=== PATIENT | female | born 1980 | race Caucasian/White ===

== ENCOUNTER 2016-11-01 09:05 | Emergency (ER) | payer BC, OTHER ==
[2016-11-01 09:24] VITALS: BP 138/92
[2016-11-01] MEDS ORDERED: NEOMY/BACITR/POLYMYXIN OINT PACKET. TP ONE (09:30)
[2016-11-01] MEDS ORDERED: HYDR-971 PO (09:36)
--- NOTE | 2016-11-01 09:36 | PHYS DOC ---
Past History Past Medical History: No Pertinent History Past Surgical History: Tubal ligation Alcohol Use: None Drug Use: None Adult General Chief Complaint Chief Complaint: ANKLE PROBLEM HPI HPI Patient is a 36-year-old female who presents ambulatory to the ED with a injury to her right lower leg. She was driven here by her son. The patient slipped getting out of the shower, her right leg went behind her and scraped on the metal shower door track. She denies other injury. She is able to bear weight. Last tetanus 2 years ago. Review of Systems Review of Systems Musculoskeletal: Denies injury other than right lower leg Integument: Scrape to the right lower leg Current Medications Current Medications Current Medications Medications (Trade) Dose Ordered Sig/Elena Start Time Stop Time Status Last Admin Dose Admin Acetaminophen/ Hydrocodone Bitart (Lortab 7.5/325) 1 tab 1X ONCE 11/01/16 09:50 11/01/16 09:51 Neomycin/ Polymyxin/ Bacitracin (Triple Antibiotic Ointment) 1 pkt 1X ONCE 11/01/16 09:30 11/01/16 09:31 UNV Allergies Allergies Allergies Coded Allergies Type Severity Reaction Last Updated Verified No Known Drug Allergies 11/01/16 No Physical Exam Physical Exam Constitutional: Well developed, well nourished, no acute distress, non-toxic appearance. Alert, mentating normally, ambulatory with a slight limp. HENT: Normocephalic, atraumatic, bilateral external ears normal, nose normal. [ ] Eyes: conjunctiva normal, no discharge. [] Neck: Normal range of motion, no stridor. [] Skin: Warm, dry, no erythema, no rash. [] Extremities: Right lower extremity: Knee without deformity, swelling, or tenderness. Proximal tib-fib nontender. On the distal anterior lower tib-fib, above the ankle, there is an approximately 6 x 8 cm area of contusion. There is a linear abrasion that is bleeding slightly down the middle of the contusion. There is tenderness of this area and also the ankle. Foot is without tenderness or deformity. Foot is warm with capillary refill less than 2 seconds. Neurologic: Alert and oriented X 3, normal motor function, normal sensory function, no focal deficits noted. [] Current Patient Data Vital Signs Vital Signs Date Time Temp Pulse Resp B/P (MAP) Pulse Ox O2 Delivery O2 Flow Rate FiO2 11/01/16 09:24 97.6 85 22 85 Room Air EKG EKG [] Radiology/Procedures Radiology/Procedures Three-view x-ray of the right ankle including the lower tib-fib read by me. No acute bony injury. [] Course & Med Decision Making Course & Med Decision Making Pertinent Labs and Imaging studies reviewed. (See chart for details) 36-year-old female presents with an injury to the right lower leg. X-rays are negative. The contusion/abrasion was cleaned and dressed. See instructions for plan. [] Dragon Disclaimer Dragon Disclaimer This chart was dictated in whole or in part using Voice Recognition software in a busy, high-work load, and often noisy Emergency Department environment. It may contain unintended and wholly unrecognized errors or omissions. Departure Departure: Impression: Primary Impression: Contusion of right lower leg, initial encounter Additional Impression: Abrasion, right lower leg, initial encounter Disposition: HOME, SELF-CARE Condition: STABLE Referrals: PAU VALENTE MD (PCP) Patient Instructions: Abrasion, [id number], Contusion, [id number] Additional Instructions: For the next 2 or 3 days, try to stay off of your leg as much as possible and keep it elevated above your heart. This will help keep the swelling from getting bad. Ice as much as possible on the outside of the Allen wrap for pain and swelling. Leave the Allen wrap in place 24 hours. Then you may remove briefly to shower and replace, wear it for 2-3 days. When you need to shower, remove the Allen wrap, clean the area with soap and water , pat dry, reapply antibiotic ointment, nonstick dressing, and rewrap snug but not too tight with the Allen wrap. For pain, ibuprofen 800 mg (4 of the 200 mg OTC pills) every 6-8 hours. Take this around the clock 3-4 times a day for 3 days then as needed. If needed for more severe pain, hydrocodone as prescribed. Not while driving. This is an opiate and will be sedating and constipating. Scripts Hydrocodone Bit/Acetaminophen (NORCO 5-325 TABLET) 1 Each Tablet 1 TAB PO PRN Q6HRS Y for PAIN, #10 TAB 0 Refills Prov: SREEDHAR ELDER MD 11/01/16 Problem Qualifiers SREEDHAR ELDER MD Nov 01, 2016 09:36
--- NOTE | 2016-11-01 09:38 | RAD ---
Three-view right ankle radiographs 11/01/2016 Clinical history: Fall with injury to the right ankle with bruising, anteriorly. Portable AP, lateral and oblique digital radiographs of the right ankle were obtained. The right ankle mortise is intact. No fracture or dislocation of the right ankle is seen. Mild to moderate degenerative changes are seen involving the right ankle joint. Mild enthesophyte formation is seen involving the posterior aspect of the right calcaneus. Impression: No fracture or dislocation of the right ankle is seen.
[2016-11-01] MEDS ORDERED: HYDROcodone/APAP 7.5/325MG 1 TAB TABLET PO ONE (09:50)
== END 2016-11-01 09:57 | disposition home or self-care (01) ==
LOC: ER 09:05
DX: S80.11XA Contusion of right lower leg, initial encounter (principal); W18.49XA Other slipping, tripping and stumbling without falling, initial encounter; Y93.89 Activity, other specified; Y92.89 Other specified places as the place of occurrence of the external cause; Y99.8 Other external cause status
CPT/HCPCS: 73610; 99284

== ENCOUNTER → 2019-05-18 | Outpatient (CLI) | payer BC ==
[~2019-05-18] MED LIST: HYDR-3165 PO
--- NOTE | 2019-05-18 17:31 | RAD ---
EXAM: Chest, 2 views. HISTORY: Influenza. Bronchospasm. COMPARISON: None. FINDINGS: 2 views of the chest are obtained. There is no infiltrate, pleural effusion or pneumothorax. The heart is normal in size. IMPRESSION: No acute pulmonary finding. Electronically signed by: Jonna Bird MD (05/18/2019 5:28 PM) [id number]
== END | disposition home or self-care (01) ==
LOC: DXRAD 15:43
PROVIDERS: ATTEND Family Medicine
DX: J09.X9 Influenza due to identified novel influenza A virus with other manifestations (principal)
CPT/HCPCS: 71046

== ENCOUNTER 2020-10-28 11:04 | Inpatient (IN) | payer SELFPAY ==
[~2020-10-28] VITALS: Ht 170.2 cm; Wt 145.9 kg
--- NOTE | 2020-10-28 11:20 | PHYS DOC ---
Past History Past Medical History: No Pertinent History Past Surgical History: Tubal ligation Alcohol Use: None Drug Use: None General Adult EDM: Chief Complaint: SHORTNESS OF BREATH HPI: HPI: Patient is a 40 year old female with history of asthma who presents with 1 week of cough productive of bloody sputum. Over the past 4 days has become increasingly short of breath. Was seen at her primary care provider's office and received an x-ray that she says showed "pneumonia". And was sent to the emergency department for further evaluation. She does state that over the past few days has had chest discomfort and shortness of breath with minimal activity. She denies any history of VTE. No blood thinners. No lower extremity edema, erythema, or pain. She is not vaccinated for Covid. She is currently staying at home. Denies any contact with Covid positive individuals. Review of Systems: Review of Systems: Constitutional: Denies fever or chills Eyes: Denies change in visual acuity HENT: Denies nasal congestion or sore throat Respiratory: Denies cough or shortness of breath Cardiovascular: Denies chest pain or edema GI: Denies abdominal pain, nausea, vomiting, bloody stools or diarrhea : Denies dysuria Musculoskeletal: Denies back pain or joint pain Integument: Denies rash Neurologic: Denies headache, focal weakness or sensory changes Endocrine: Denies polyuria or polydipsia Lymphatic: Denies swollen glands Psychiatric: Denies depression or anxiety Allergies: Allergies: Allergies Coded Allergies Type Severity Reaction Last Updated Verified No Known Drug Allergies 11/01/16 No Physical Exam: PE: Constitutional: Obese. Well developed, well nourished, no acute distress, non- toxic appearance. [] HENT: Normocephalic, atraumatic, bilateral external ears normal, oropharynx moist, no oral exudates, nose normal. [] Eyes: PERRLA, EOMI, conjunctiva normal, no discharge. [] Neck: Normal range of motion, no tenderness, supple, no stridor. [] Cardiovascular: Tachycardic. Regular rhythm, no murmur [] Lungs & Thorax: Bilateral crackles. With speaking desaturated to 86%.[] Abdomen: Bowel sounds normal, soft, no tenderness, no masses, no pulsatile masses. [] Skin: Warm, dry, no erythema, no rash. [] Back: No tenderness, no CVA tenderness. [] Extremities: No tenderness, no cyanosis, no clubbing, ROM intact, no edema. [] Neurologic: Alert and oriented X 3, normal motor function, normal sensory function, no focal deficits noted. [] Psychologic: Affect normal, judgement normal, mood normal. [] EKG: EKG: Sinus rhythm. Rate 99. Normal intervals. Slight leftward axis deviation. No acute ischemic changes. [] Radiology/Procedures: Radiology/Procedures: [] Heart Score: C/O Chest Pain: N/A Risk Factors: Risk Factors: DM, Current or recent (<one month) smoker, HTN, HLP, family history of CAD, obesity. Risk Scores: Score 0 - 3: 2.5% MACE over next 6 weeks - Discharge Home Score 4 - 6: 20.3% MACE over next 6 weeks - Admit for Clinical Observation Score 7 - 10: 72.7% MACE over next 6 weeks - Early Invasive Strategies Course & Med Decision Making: Course & Med Decision Making Pertinent Labs and Imaging studies reviewed. (See chart for details) Patient is a 40-year-old female who presents with 1 week of cough, bloody sputum, now with shortness of breath and fevers. Reportedly had a chest x-ray showing pneumonia at PCPs office today She is not vaccinated for Covid. On arrival she is tachycardic to 120, desaturated to 86% on room air with speaking. Saturating in the low 90s now on 2 L/min. Given hemoptysis, tachycardia, and hypoxia also considered PE in addition to pneumonia. D-dimer sent. We will check lab work including CBC, CMP, lactate. I am holding off on decision for antibiotics until I have a chest x-ray report and lab work available to me as it is unclear if this is viral vs bacterial. She will clearly require admission given her hypoxia. 1136 CTA negative for PE. Does show diffuse groundglass opacities consistent with COVID-19 pneumonia. No leukocytosis. Will hold off on antibiotics at this time. Will treat with steroids given this is presumed Covid. Will be admitted to Dr. Ariza. [id number] Disclaimer: Daksha Disclaimer: This electronic medical record was generated, in whole or in part, using a voice recognition dictation system. Departure Departure: Impression: Primary Impression: Respiratory failure with hypoxia Additional Impressions: Ground glass opacity present on imaging of lung Pneumonia of both lungs Disposition: 09 ADMITTED INPATIENT Admitting Physician: Kvng Ariza Condition: IMPROVED Referrals: KVNG ARIZA MD (PCP) SARY MULLIGAN MD Oct 28, 2020 11:20
[2020-10-28] MEDS ORDERED: IV NORMAL SALINE 1,000ML 1,000 ML IV ONE (11:30)
[2020-10-28 11:57] LABS: BASO % 0 % (0-3); EOS % 1 % (0-3); HEMOGLOBIN 13.6 g/dL (12.0-15.5); LYMPH # 1.1 x10^3/uL (1.0-4.8); LYMPH % 18 % (24-48); MEAN CORPUSCULAR HEMOGLOBIN 28 pg (25-35); MEAN CORPUSCULAR HGB CONC 33 g/dL (31-37); MEAN CORPUSCULAR VOLUME 84 fL (79-100); MONO # 0.6 x10^3/uL (0.0-1.1); MONO % 9 % (0-9); NEUT # 4.6 x10^3uL (1.8-7.7); NEUT % 72 % (31-73); PLATELET COUNT 168 x10^3/uL (140-400); WHITE BLOOD COUNT 6.4 x10^3/uL (4.0-11.0)
[2020-10-28 12:02] LABS: CALCIUM 8.4 mg/dL (8.5-10.1); CREATININE 0.9 mg/dL (0.6-1.0); POTASSIUM 3.8 mmol/L (3.5-5.1)
[2020-10-28 12:08] LABS: ALBUMIN 3.7 g/dL (3.4-5.0); ALBUMIN/GLOBULIN RATIO 1.1 (1.0-1.7); TOTAL BILIRUBIN 0.6 mg/dL (0.2-1.0); TOTAL PROTEIN 7.2 g/dL (6.4-8.2)
[2020-10-28] MEDS ORDERED: IOHEXOL 350 MG/ML 100 ML VIAL. IV ONE (12:45)
--- NOTE | 2020-10-28 13:14 | EKG ---
[address] [address] Test Date: 2020-10-28 Test Time: 11:37:17 Pat Name: MENDEZ FINE Department: Room: Gender: F Clin Nurse: YINA : 1980 Requested By: SARY MULLIGAN Order Number: [id number] Reading MD: Measurements Intervals [place] Rate: 99 P: -16 WI: 148 QRS: -2 QRSD: 78 T: 1 QT: 330 QTc: 429 Interpretive Statements SINUS RHYTHM LEFTWARD AXIS OTHERWISE NORMAL ECG RI6.02 No previous ECG available for comparison
--- NOTE | 2020-10-28 13:53 | RAD ---
EXAM: CT chest with contrast - pulmonary embolus protocol CLINICAL HISTORY: Reason: hemoptysis, chest pain, hypoxia. R/o PE. / Spl. Instructions: / History: . COMPARISON: None. TECHNIQUE: CT of the chest following the administration of intravenous contrast during the pulmonary arterial phase. Axial, coronal and sagittal reformatted images were generated including MIP images. ---PQRS compliance statement - One or more of the following individualized dose reduction techniques were utilized for this study: 1. Automated exposure control 2. Adjustment of the mA and/or kV according to patient size 3. Use of iterative reconstruction technique--- FINDINGS: CHEST: Diagnostic quality: Suboptimal. Pulmonary emboli: No pulmonary emboli to the level of the lobar branches. More peripheral vessels ar e not well assessed Right heart strain: None Pulmonary arteries: Normal in caliber. Heart is not enlarged. No pericardial effusion. No pleural effusion. No pneumothorax. No axillary lym phadenopathy. Enlarged mediastinal and hilar lymph nodes, for example a left hilar lymph node measure s 1.7 x 1.4 cm and a right hilar lymph node measures 2.7 x 1.5 cm. Bilateral groundglass nodular opacities are seen with consolidative process such as pneumonia. No ple ural effusion or pneumothorax. Visualized Upper abdomen: Unremarkable Bones: Multilevel degenerative changes of the spine are seen. Rightward curvature of the thoracic spi ne. IMPRESSION: 1. Suboptimal contrast bolus. No pulmonary emboli to the level of the lobar branches. More periphera l vessels are not well assessed. 2. Bilateral groundglass nodular opacities are seen with consolidative process such as pneumonia, in cluding Covid Pneumonia. Imaging follow-up to resolution is recommended to exclude underlying mass. 3. Mediastinal and hilar lymphadenopathy may be reactive. Electronically signed by: Andres Cleaning MD (10/28/2020 1:50 PM) N[facility]GEL
[2020-10-28 16:43] VITALS: BP 120/81
[2020-10-28] MEDS ORDERED: ZOLPIDEM 5 MG TABLET. PO PRN (17:30)
[2020-10-28] MEDS ORDERED: ACETAMINOPHEN 500 MG TABLET PO PRN (17:30)
[2020-10-28] MEDS: ENOXAPARIN 40 MG/0.4 ML SYRINGE. SQ SCH (18:09)
[2020-10-28] MEDS: DEXAMETHASONE SOD PHOS 4 MG/ML VIAL. IVP SCH ×2 (18:09→20:52)
[2020-10-28 19:05] VITALS: BP 134/91
--- NOTE | 2020-10-28 19:16 | NUR ---
The patient, MENDEZ FINE, 40 y/o, F admitted by PAU VALENTE MD, was given written information regarding hospital policies, unit procedures and contact persons. Valuables were checked and left with pt.
[2020-10-28] MEDS ORDERED: IPRATRPIUM/ALBUTEROL 0.5/2.5MG 3 ML NEBU. NEB SCH (20:00)
--- NOTE | 2020-10-28 21:00 | NUR ---
Pt had questions about Ivermectin and Hydroxychloroquine. Pt encouraged to speak with about her concerns and questions about his treatment plan. has ordered Remdesivir, if COVID is positive. Test is still pending. Will continue to monitor.
[2020-10-28 21:11] LABS: FECAL OB PT NEGATIVE (NEG)
[2020-10-28 23:28] VITALS: BP 137/92
[2020-10-29 05:35] VITALS: BP 118/70
[2020-10-29] MEDS: HYDROcodone/APAP 5/325MG 1 TAB TABLET PO PRN ×2 (05:55→20:31)
[2020-10-29] MEDS: LACTOBACILLUS RHAMNOSUS GG 1 CAPSULE. PO SCH ×2 (07:45→20:31)
[2020-10-29] MEDS: PANTOPRAZOLE 40 MG TABLET. PO SCH (07:45)
[2020-10-29] MEDS: DEXAMETHASONE SOD PHOS 4 MG/ML VIAL. IVP SCH ×3 (07:45→20:32)
[2020-10-29] MEDS: AZITHROMYCIN 250 MG TABLET. PO SCH (07:45)
[2020-10-29] MEDS: CITALOPRAM 20 MG TABLET. PO SCH (07:46)
[2020-10-29 11:23] VITALS: BP 131/87
[2020-10-29] MEDS: IPRATROPIUM/ALBUTEROL 20/100mcg/INH INHALER. INH SCH ×3 (11:52→20:30)
[2020-10-29] MEDS ORDERED: MAG HYDROX/AL HYDROX/SIMETH 30 ML ORAL.SUSP PO PRN (12:30)
[2020-10-29] MEDS ORDERED: PANTOPRAZOLE 40 MG TABLET. PO SCH (12:30)
[2020-10-29] MEDS ORDERED: ZOLPIDEM 5 MG TABLET. PO PRN (12:30)
[2020-10-29] MEDS ORDERED: REMDESIVIR LOAD in IV NORMAL SALINE 250ML TV IV ONE (13:00)
[2020-10-29] MEDS: LOPERAMIDE 2 MG CAPSULE PO PRN ×3 (13:03→20:43)
[2020-10-29] MEDS: ENOXAPARIN 40 MG/0.4 ML SYRINGE. SQ SCH (17:34)
[2020-10-29 17:44] VITALS: BP 126/75
[2020-10-29 23:00] VITALS: BP 150/90
[2020-10-30] MEDS: MELATONIN 3 MG TABLET PO PRN ×2 (01:32→19:55)
--- NOTE | 2020-10-30 01:32 | NUR ---
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 Pt declined, reporting she has numerous family members with adverse reactions to the med. Pt now reports she is unable to sleep and is requesting Ambien. Pt informed no doses can be administered after midnight. PRN melatonin given instead. See eMAR.
[2020-10-30] MEDS: DEXAMETHASONE SOD PHOS 4 MG/ML VIAL. IVP SCH ×3 (08:06→19:54)
[2020-10-30] MEDS: IPRATROPIUM/ALBUTEROL 20/100mcg/INH INHALER. INH SCH ×4 (08:06→19:54)
[2020-10-30] MEDS: AZITHROMYCIN 250 MG TABLET. PO SCH (08:06)
[2020-10-30] MEDS: LACTOBACILLUS RHAMNOSUS GG 1 CAPSULE. PO SCH ×2 (08:06→19:55)
[2020-10-30] MEDS: CITALOPRAM 20 MG TABLET. PO SCH (08:06)
[2020-10-30] MEDS: PANTOPRAZOLE 40 MG TABLET. PO SCH (08:06)
[2020-10-30 08:32] VITALS: BP 119/73
[2020-10-30] MEDS ORDERED: AZITHROMYCIN 250 MG TABLET. PO SCH (09:00)
[2020-10-30 10:31] LABS: ALBUMIN 3.3 g/dL (3.4-5.0); ALBUMIN/GLOBULIN RATIO 0.9 (1.0-1.7); CALCIUM 8.4 mg/dL (8.5-10.1); CREATININE 0.8 mg/dL (0.6-1.0); POTASSIUM 3.9 mmol/L (3.5-5.1); TOTAL BILIRUBIN 0.4 mg/dL (0.2-1.0)
[2020-10-30 10:47] VITALS: BP 143/72
--- NOTE | 2020-10-30 12:14 | PN ---
SUBJECTIVE: A 40-year-old female seen in the office yesterday, admitted through the Emergency Room for COVID-19 pneumonia, but more importantly acute respiratory failure. The patient had not been feeling well for some time and as a result, was seen in the Emergency Room via the office. The patient says she is feeling a little better today, although she does have diarrhea, nausea, abdominal discomfort with some acid heartburn. OBJECTIVE: VITAL SIGNS: Blood pressure 130/80, respiratory rate 20, pulse in the 80s, temperature 99.1. She is on 3 liters at 92%, without it she is down in the 80s. She has been started on remdesivir. GENERAL: The patient otherwise alert and oriented. LUNGS: Diminished, but clear. CARDIOVASCULAR: Regular sinus rhythm. ABDOMEN: Protuberant, soft, nontender. EXTREMITIES: No clubbing, cyanosis, edema. NEUROLOGIC: The patient alert and oriented x 3. LABORATORY DATA: From yesterday, white count 6, hemoglobin and hematocrit 13 and 41. Chemistries: 137/3.8. Elevated slightly liver enzymes of AST 48, ALT 64. Kidney function is normal. Stool occult negative. Serology positive, of course, for SARS. IMPRESSION: SARS COVID-19 pneumonia with acute respiratory failure. PLAN: Continue on present regimen of remdesivir, antibiotics because of a pneumonic process itself and handheld MDI inhaler. ELDA/ERNIE/NEL DR: ELDA/del TID: [id number]
[2020-10-30] MEDS: REMDESIVIR 100mg in NORMAL SALINE 250ML X 4 DAYS IV SCH (13:21)
[2020-10-30] MEDS: LOPERAMIDE 2 MG CAPSULE PO PRN ×2 (15:16→19:55)
[2020-10-30 15:38] VITALS: BP 147/89
[2020-10-30] MEDS ORDERED: DEXTROSE 50% 25 GM / 50ML DISP.SYRIN. IV PRN (16:00)
[2020-10-30] MEDS: ENOXAPARIN 40 MG/0.4 ML SYRINGE. SQ SCH (17:00)
[2020-10-30] MEDS: INSULIN LISPRO 300 UNITS/3 ML VIAL. SQ SCH (17:01)
[2020-10-30 18:39] VITALS: BP 146/94
[2020-10-30] MEDS: HYDROcodone/APAP 5/325MG 1 TAB TABLET PO PRN (19:57)
--- NOTE | 2020-10-31 04:37 | PN ---
DATE: 10/30/2020 SUBJECTIVE: This is a 40-year-old female with COVID-19 pneumonia and respiratory distress, although she is making good progress. We have got her on remdesivir and alike. The patient is on antibiotic therapy. She is on Rocephin and Zithromax because of her pneumonia per the x-ray. OBJECTIVE: VITAL SIGNS: Blood pressure 143/72, respirations 20, pulse 68, afebrile. GENERAL: The patient is alert and oriented. LUNGS: Diminished, but clearer than they have been. CARDIOVASCULAR: Regular sinus rhythm. ABDOMEN: Soft, nontender. EXTREMITIES: No clubbing or edema. NEUROLOGIC: Alert and oriented x3. The patient otherwise seems to be making good progress overall. Blood sugars are being monitored in accordance with the use of the Decadron for her breathing. Serology obviously positive. The patient otherwise resting fairly comfortably. IMPRESSION: COVID-19 pneumonia, hyperglycemia, elevated liver enzymes, although they returned back to normal and moderate protein malnutrition. PLAN: Continue with present drug regimen and hopefully ready for discharge here soon. ELDA/NICOLE/ABELARDO DR: Ana TID: [id number]
[2020-10-31 05:51] VITALS: BP 153/93
[2020-10-31 06:25] LABS: BASO % 0 % (0-3); EOS % 0 % (0-3); HEMATOCRIT 35.3 % (36.0-47.0); HEMOGLOBIN 11.7 g/dL (12.0-15.5); LYMPH # 1.1 x10^3/uL (1.0-4.8); LYMPH % 14 % (24-48); MEAN CORPUSCULAR HEMOGLOBIN 28 pg (25-35); MEAN CORPUSCULAR HGB CONC 33 g/dL (31-37); MEAN CORPUSCULAR VOLUME 83 fL (79-100); MONO # 0.8 x10^3/uL (0.0-1.1); MONO % 10 % (0-9); NEUT # 6.1 x10^3uL (1.8-7.7); NEUT % 77 % (31-73); PLATELET COUNT 219 x10^3/uL (140-400); RED BLOOD COUNT 4.25 x10^6/uL (3.50-5.40); RED CELL DISTRIBUTION WIDTH 14.7 % (11.5-14.5)
[2020-10-31] MEDS: CITALOPRAM 20 MG TABLET. PO SCH (08:47)
[2020-10-31] MEDS: LACTOBACILLUS RHAMNOSUS GG 1 CAPSULE. PO SCH ×2 (08:47→20:51)
[2020-10-31] MEDS: PANTOPRAZOLE 40 MG TABLET. PO SCH (08:47)
[2020-10-31] MEDS: DEXAMETHASONE SOD PHOS 4 MG/ML VIAL. IVP SCH ×2 (08:48→20:51)
[2020-10-31] MEDS: INSULIN LISPRO 300 UNITS/3 ML VIAL. SQ SCH ×3 (08:48→16:26)
[2020-10-31] MEDS: AZITHROMYCIN 250 MG TABLET. PO SCH (08:49)
[2020-10-31] MEDS: IPRATROPIUM/ALBUTEROL 20/100mcg/INH INHALER. INH SCH ×4 (08:50→20:51)
[2020-10-31] MEDS: REMDESIVIR 100mg in NORMAL SALINE 250ML X 4 DAYS IV SCH (13:51)
[2020-10-31 15:09] VITALS: BP 162/98
[2020-10-31] MEDS: ENOXAPARIN 40 MG/0.4 ML SYRINGE. SQ SCH (17:22)
--- NOTE | 2020-10-31 18:16 | NUR ---
Nursing Note Patient had uneventful shift, IVABX continues, no acute events throughout the shift. Patient is possible discharge tomorrow.
[2020-10-31] MEDS: LOPERAMIDE 2 MG CAPSULE PO PRN ×2 (18:18→20:51)
[2020-10-31 19:30] VITALS: BP 146/72
[2020-10-31] MEDS: HYDROcodone/APAP 5/325MG 1 TAB TABLET PO PRN (20:51)
[2020-10-31] MEDS: MELATONIN 3 MG TABLET PO PRN (20:51)
--- NOTE | 2020-10-31 22:11 | PN ---
SUBJECTIVE: A 40-year-old female in with COVID-19 pneumonia, respiratory failure. She is doing somewhat better overall and has had a significant improvement with remdesivir and mild breathing treatments, IV and oral antibiotics. The patient otherwise seems to be resting fairly comfortably, but because without insurance, she cannot obtain oxygen at home as the oxygen company demands payment at the time of service. So for now, otherwise, she will stay here until we can get things arranged. She is being helped to be applying for Medicaid and make further adjustments once those pills were brought in for the patient's health. Otherwise, alert and oriented, seems to be much more cheerful. OBJECTIVE: VITAL SIGNS: Blood pressure 153/93, respirations 18, pulse 55, 3 liters, 94. GENERAL: The patient is alert and oriented. HEAD: Atraumatic, normocephalic. LUNGS: Diminished but clear. CARDIOVASCULAR: Regular sinus rhythm. ABDOMEN: Protuberant, soft, nontender. No rebound or guarding. Positive bowel sounds, no hepatosplenomegaly. EXTREMITIES: No clubbing, cyanosis or edema. NEUROLOGIC: The patient was alert and oriented x3. IMPRESSION: Therefore, the COVID-19 pneumonia, acute respiratory failure, type 2 diabetes, moderate protein malnutrition, positive COVID. JOAN DR: Ana TID: [id number]
[2020-11-01 05:39] VITALS: BP 167/85
--- NOTE | 2020-11-01 06:33 | NUR ---
Pt reports sleeping well with PRN melatonin. Pt remains on supplemental O2 at 3L with SpO2 of 97%. Will attempt to wean down.
[2020-11-01] MEDS: INSULIN LISPRO 300 UNITS/3 ML VIAL. SQ SCH ×3 (08:00→17:00)
[2020-11-01] MEDS: CITALOPRAM 20 MG TABLET. PO SCH (09:00)
[2020-11-01] MEDS: PANTOPRAZOLE 40 MG TABLET. PO SCH (09:00)
[2020-11-01] MEDS: LACTOBACILLUS RHAMNOSUS GG 1 CAPSULE. PO SCH ×2 (09:00→20:59)
[2020-11-01] MEDS: AZITHROMYCIN 250 MG TABLET. PO SCH (09:00)
[2020-11-01] MEDS: DEXAMETHASONE SOD PHOS 4 MG/ML VIAL. IVP SCH ×2 (09:00→20:59)
[2020-11-01] MEDS: IPRATROPIUM/ALBUTEROL 20/100mcg/INH INHALER. INH SCH ×4 (09:01→20:00)
[2020-11-01 10:32] VITALS: BP 150/93
[2020-11-01] MEDS: REMDESIVIR 100mg in NORMAL SALINE 250ML X 4 DAYS IV SCH (13:58)
[2020-11-01 15:07] VITALS: BP 157/95
--- NOTE | 2020-11-01 15:40 | NUR ---
Patient Condition Change At apx 1140 patient complained of chest pain via call light. This nurse went into room to perform assessment. Patient states it is more of a muscle pain/acid reflux sensation. Patient denies shortness of air and has a oxygen saturation of 96% on room air. Patient was asked to sit up in bed and take deep breaths slowly. Patient stated that pain began to resolve. Patient also had drank a clear apple ensure and stated "I was alden laying down when I took a sip", this nurse educated patient on importance of sitting at a minimum of 30-15 degree angle during any oral intake. Patient also taught over how to use incentive spirometer (1o times every hour while awake), also on importance of getting out of bed into the chair and being mobile around the room. Discussion/teach back method of education used.
[2020-11-01] MEDS: ENOXAPARIN 40 MG/0.4 ML SYRINGE. SQ SCH (17:44)
[2020-11-01 20:24] VITALS: BP 135/69
[2020-11-01] MEDS: HYDROcodone/APAP 5/325MG 1 TAB TABLET PO PRN (20:59)
[2020-11-01] MEDS: LISINOPRIL 20 MG TABLET PO SCH (21:01)
[2020-11-02 06:26] VITALS: BP 133/82
[2020-11-02] MEDS: AZITHROMYCIN 250 MG TABLET. PO SCH (08:54)
[2020-11-02] MEDS: PANTOPRAZOLE 40 MG TABLET. PO SCH (08:55)
[2020-11-02] MEDS: CITALOPRAM 20 MG TABLET. PO SCH (08:55)
[2020-11-02] MEDS: DEXAMETHASONE SOD PHOS 4 MG/ML VIAL. IVP SCH (08:55)
[2020-11-02] MEDS: IPRATROPIUM/ALBUTEROL 20/100mcg/INH INHALER. INH SCH ×2 (08:55→13:49)
[2020-11-02] MEDS: LISINOPRIL 20 MG TABLET PO SCH (08:55)
[2020-11-02] MEDS: INSULIN LISPRO 300 UNITS/3 ML VIAL. SQ SCH ×2 (08:56→12:00)
[2020-11-02] MEDS: LACTOBACILLUS RHAMNOSUS GG 1 CAPSULE. PO SCH (08:56)
[2020-11-02] MEDS ORDERED: IPRA4AER INH (10:17)
[2020-11-02] MEDS ORDERED: MELA3TAB4 PO (10:17)
[2020-11-02] MEDS ORDERED: LISI20TA18 PO (10:17)
[2020-11-02] MEDS ORDERED: OMEP20TA63 PO (10:17)
[2020-11-02] MEDS ORDERED: AZIT250T6 PO (10:17)
[2020-11-02] MEDS ORDERED: PRED5TAB PO (10:17)
[2020-11-02] MEDS ORDERED: MAG30ORA2 PO (10:17)
[2020-11-02] MEDS ORDERED: LOPE2CAP PO (10:17)
[2020-11-02 11:37] VITALS: BP 136/77
[2020-11-02] MEDS: REMDESIVIR 100mg in NORMAL SALINE 250ML X 4 DAYS IV SCH (13:49)
--- NOTE | 2020-11-02 14:04 | PN ---
SUBJECTIVE: The patient in with COVID-19 pneumonia and respiratory failure. The patient is doing better day by day. She is improving and shows good improvement today. The patient in turn seems to be breathing much easier. OBJECTIVE: VITAL SIGNS: Blood pressure 157/95 ( ), respiration rate 20, pulse 60, afebrile, 92% on room air. GENERAL: The patient is alert and oriented, much more better affect overall in terms of energy level. Mouth and throat normal. NECK: Supple. LUNGS: Diminished but basically clear. CARDIOVASCULAR: Regular sinus rhythm. ABDOMEN: Soft, nontender. EXTREMITIES: No clubbing, cyanosis or edema. NEUROLOGIC: She is in a good mood and feeling much better overall. We will go ahead and adjust her blood pressure medications. IMPRESSION: COVID-19 pneumonia, acute respiratory failure, hyperglycemia, elevated liver enzymes, although those are resolving, moderate protein malnutrition, essential hypertension. PLAN: Continue with present drug regimen and hopefully ready for discharge in the a.m. JOAN/FRANCIS DR: Ana TID: [id number]
--- NOTE | 2020-11-02 15:12 | NUR ---
NSG NOTE; DISCHARGE VERBAL AND WRITTEN DISCHARGE INSTRUCTIONS GIVEN TO PT WITH VERBAL UNDERSTANDING MULTI RX TRANSMITTED TO PT'S PHARMACY DISCHARGED TO HOME AT 1510 VIA W/C ACCOMP BY SPOUSE
== END 2020-11-02 15:10 | disposition home or self-care (01) | DRG 177 ==
LOC: ER 11:04 → 1 SOUTH 14:05
PROVIDERS: ADMIT Family Medicine; ATTEND Family Medicine
PROC: XW033E5 Introduction of Remdesivir Anti-infective into Peripheral Vein, Percutaneous Approach, New Technology Group 5 (ICD-10-PCS; principal; 2020-10-29)
DX: U07.1 COVID-19 (principal); J12.82 Pneumonia due to coronavirus disease 2019; J96.01 Acute respiratory failure with hypoxia; E44.0 Moderate protein-calorie malnutrition; E11.65 Type 2 diabetes mellitus with hyperglycemia; I10 Essential (primary) hypertension; J45.909 Unspecified asthma, uncomplicated; Z98.51 Tubal ligation status; R74.8 Abnormal levels of other serum enzymes
CPT/HCPCS: 36415; 71275; 80053; 82274; 82947; 83605; 84484; 85025; 85379; 93005; 96360; J0696; J1100; J1650; J1815; J7050; Q9967; U0003; 99285-25; J7030

== ENCOUNTER → 2021-04-26 | Outpatient (CLI) | payer BC ==
[~2021-04-26] MED LIST changes: +AZIT250T6 PO; +IPRA4AER INH; +LISI20TA18 PO; +LOPE2CAP PO; +MAG30ORA2 PO; +MELA3TAB4 PO; +OMEP20TA63 PO; +PRED5TAB PO
[2021-04-26] MEDS: IOHEXOL 350 MG/ML 100 ML VIAL. IV ONE (16:31)
--- NOTE | 2021-04-26 16:49 | RAD ---
CTA CHEST History: Shortness of breath Technique: CT of the chest was performed with intravenous contrast. PE protocol. Maximum intensity pr ojection coronal and sagittal reconstructions were performed. Exposure: One or more of the following individualized dose reduction techniques were utilized for thi s examination: 1. Automated exposure control 2. Adjustment of the mA and/or kV according to patient size 3. Use of iterative reconstruction technique. Comparison: October 28, 2020. Findings: Chest: No pulmonary embolus. No aortic aneurysm or dissection. Decreased mediastinal and hilar lympha denopathy. Mild ill-defined ground glass opacities within the left upper lobe and left lower lobe. No pleural ef fusion. No pneumothorax. Calcified left upper lobe pulmonary nodule, likely prior granulous disease. 5 mm lower lobe pulmonary nodule (series 4 image 69), unchanged. Upper abdomen: The imaged upper abdomen is unremarkable. Bones: Chronic right posterior 11th rib fracture. Impression: 1. No pulmonary embolism. 2. Mild left upper and lower lobe ground glass opacities, may represent infectious or inflammatory p rocess. 3. Small right lower lobe pulmonary nodule. Recommend one-year follow-up chest CT without contrast i f high risk. Electronically signed by: Héctor Olivarez DO (04/26/2021 4:47 PM) [facility]
== END ==
LOC: CT 16:18
PROVIDERS: ATTEND Family Medicine
DX: S22.31XA Fracture of one rib, right side, initial encounter for closed fracture (principal); R91.1 Solitary pulmonary nodule; R91.8 Other nonspecific abnormal finding of lung field; X58.XXXA Exposure to other specified factors, initial encounter; Y93.89 Activity, other specified; Y92.89 Other specified places as the place of occurrence of the external cause; Y99.8 Other external cause status
CPT/HCPCS: 71275; Q9967